=== PATIENT | female | born 1965 | race Two or more races ===

== ENCOUNTER 2021-03-21 14:10 | Emergency (ER) | payer MEDICARE ==
[~2021-03-21] VITALS: Ht 162.6 cm; Wt 102.1 kg
[2021-03-21 14:31] LABS: BASOPHILS # (AUTO) 0.1 (0.0-0.1); BASOPHILS % 0.8 % (0.0-1.0); EOSINOPHILS # (AUTO) 0.2 (0.0-0.4); EOSINOPHILS % 2.2 % (0.0-6.0); HEMATOCRIT 45.3 % (34.2-44.1); HEMOGLOBIN 14.8 g/dL (12.0-16.0); LYMPHOCYTES # (AUTO) 2.1 (1.0-3.2); LYMPHOCYTES % 19.7 % (18.0-39.1); MEAN CORPUSCULAR HEMOGLOBIN 30.7 pg (28-32); MEAN CORPUSCULAR HGB CONC 32.7 g/dL (31-35); MONOCYTES # (AUTO) 0.5 (0.2-0.8); MONOCYTES % 4.7 % (4.4-11.3); NEUTROPHILS # (AUTO) 7.8 (2.1-6.9); NEUTROPHILS % 72.3 % (38.7-80.0); PLATELET COUNT 287 x10e3/uL (140-360); RED BLOOD COUNT 4.82 x10e6/uL (3.6-5.1); RED CELL DISTRIBUTION WIDTH 15.5 % (11.7-14.4)
[2021-03-21 14:44] LABS: INR 0.84; PROTHROMBIN TIME 12.2 seconds (11.9-14.5)
[2021-03-21 14:56] LABS: ALBUMIN 4.2 g/dL (3.5-5.0); ALBUMIN/GLOBULIN RATIO 1.2 (0.8-2.0); ANION GAP 17.5 mmol/L (8-16); CALCIUM 10.1 mg/dL (8.4-10.2); CREATININE, SERUM 1.47 mg/dL (0.57-1.11); POTASSIUM 4.5 mmol/L (3.5-5.1)
[2021-03-21 15:02] LABS: CREATINE KINASE MB 7.1 ng/mL (0-5.0)
== END 2021-03-21 16:37 | disposition home or self-care (01) ==
LOC: ER 14:14
DX: R07.9 Chest pain, unspecified (principal); I10 Essential (primary) hypertension; I25.10 Atherosclerotic heart disease of native coronary artery without angina pectoris; I25.2 Old myocardial infarction; Z95.1 Presence of aortocoronary bypass graft
CPT/HCPCS: 36415; 71045; 80053; 82550; 82553; 83880; 84484; 85025; 85610; 85730; 93005; 99284

== ENCOUNTER 2021-04-14 11:31 | Emergency (ER) | payer OTHER ==
[~2021-04-14] VITALS: Ht 167.6 cm; Wt 120.2 kg
[2021-04-14] MEDS ORDERED: HYDROCODONE/APAP 5MG-325MG TAB PO NR (12:45)
[2021-04-14] MEDS ORDERED: ULTRAM50 MG PO (14:30)
== END 2021-04-14 14:30 | disposition home or self-care (01) ==
LOC: ER 12:28
DX: S66.811A Strain of other specified muscles, fascia and tendons at wrist and hand level, right hand, initial encounter (principal); X50.1XXA Overexertion from prolonged static or awkward postures, initial encounter; Y92.008 Other place in unspecified non-institutional (private) residence as the place of occurrence of the external cause; I10 Essential (primary) hypertension; I25.10 Atherosclerotic heart disease of native coronary artery without angina pectoris; I25.2 Old myocardial infarction; Z95.1 Presence of aortocoronary bypass graft; Z20.822 Contact with and (suspected) exposure to COVID-19; F17.210 Nicotine dependence, cigarettes, uncomplicated
CPT/HCPCS: 29125; 73090; 73110; 73140; 99283; U0002

== ENCOUNTER 2021-07-30 15:10 | Emergency (ER) | payer MEDICARE ==
[~2021-07-30] VITALS: Ht 167.6 cm; Wt 120.2 kg
[~2021-07-30 15:10] MED LIST: ULTRAM50 MG PO
[2021-07-30] MEDS ORDERED: HYDROCODON-ACE1 EAC9 PO (15:31)
[2021-07-30] MEDS ORDERED: LIDOCAINE1 EACH TD (15:31)
== END 2021-07-30 15:36 | disposition home or self-care (01) ==
LOC: ER 15:16
DX: M25.552 Pain in left hip (principal); M54.10 Radiculopathy, site unspecified; I10 Essential (primary) hypertension; I25.10 Atherosclerotic heart disease of native coronary artery without angina pectoris; I25.2 Old myocardial infarction; Z95.1 Presence of aortocoronary bypass graft; F17.210 Nicotine dependence, cigarettes, uncomplicated
CPT/HCPCS: 99282

== ENCOUNTER 2021-10-08 06:39 | Observation (INO) | payer MEDICARE ==
[2021-10-03 11:45] LABS: BASOPHILS # (AUTO) 0.1 (0.0-0.1); BASOPHILS % 0.4 % (0.0-1.0); EOSINOPHILS # (AUTO) 0.3 (0.0-0.4); EOSINOPHILS % 2.2 % (0.0-6.0); HEMATOCRIT 47.9 % (34.2-44.1); HEMOGLOBIN 14.3 g/dL (12.0-16.0); LYMPHOCYTES # (AUTO) 2.8 (1.0-3.2); LYMPHOCYTES % 23.1 % (18.0-39.1); MEAN CORPUSCULAR HEMOGLOBIN 27.8 pg (28-32); MEAN CORPUSCULAR HGB CONC 29.9 g/dL (31-35); MONOCYTES # (AUTO) 0.7 (0.2-0.8); MONOCYTES % 5.3 % (4.4-11.3); NEUTROPHILS # (AUTO) 8.3 (2.1-6.9); NEUTROPHILS % 68.8 % (38.7-80.0); PLATELET COUNT 291 x10e3/uL (140-360); RED BLOOD COUNT 5.15 x10e6/uL (3.6-5.1); RED CELL DISTRIBUTION WIDTH 15.4 % (11.7-14.4)
[2021-10-03 12:01] LABS: ANION GAP 16.5 mmol/L (8-16); CALCIUM 10.2 mg/dL (8.4-10.2); CREATININE, SERUM 0.94 mg/dL (0.57-1.11); POTASSIUM 4.5 mmol/L (3.5-5.1)
[~2021-10-08] VITALS: Ht 167.6 cm; Wt 114.8 kg
[~2021-10-08 06:39] MED LIST changes: +CYCLOBENZAPRINE5 MG PO; +HYDROCODON-ACE1 EAC9 PO; +LASIX40 MG PO; +LIDOCAINE1 EACH TD; +LIPITOR20 MG PO; +LOSARTAN POTASS25 MG PO; +METOPROLOL; +NEURONTIN300 MG PO; +PLAVIX PO; +SYNTHROID50 MCG PO
[2021-10-08] MEDS ORDERED: CELECOXIB 200 MG CAP ONE (07:40)
[2021-10-08] MEDS ORDERED: GABAPENTIN 300 MG CAP ONE (07:41)
[2021-10-08] MEDS ORDERED: DEXAMETHASONE SOD PHOS 10 MG/1 ML VIAL ONE (07:41)
[2021-10-08] MEDS ORDERED: ROPIVACAINE 246.25 MG, EPINEPHRINE HCL 1:1000 1ML 0.5 MG, CLONIDINE HCL 0.08 MG, KETORO... INJ ONE ×5 (08:00)
[2021-10-08] MEDS ORDERED: Vancomycin IV 1,000 MG ONE (08:39)
[2021-10-08] MEDS ORDERED: SODIUM CHLORIDE 0.9% 500ML 500 ML ONE (08:40)
[2021-10-08] MEDS ORDERED: TRANEXAMIC ACID 20 ML ONE (08:40)
[2021-10-08] MEDS ORDERED: DIPHENHYDRAMINE HCL INJ 50 MG/ML VIAL IV PRN (11:00)
[2021-10-08] MEDS ORDERED: ONDANSETRON HCL INJ 2MG/ML 2ML 2 MG/ML VIAL IV PRN (11:00)
[2021-10-08] MEDS ORDERED: DOCUSATE SODIUM 100 MG CAP PO PRN (11:00)
[2021-10-08] MEDS ORDERED: ZOLPIDEM TARTRATE 5 MG TAB PO PRN (11:00)
[2021-10-08] MEDS ORDERED: ACETAMINOPHEN 650 MG SUPP PR PRN (11:00)
[2021-10-08] MEDS ORDERED: HYDROCODONE/APAP 5MG-325MG TAB PO PRN (11:00)
[2021-10-08] MEDS ORDERED: HYDROMORPHONE 1MG/1ML INJ ONE ×2 (11:26→12:52)
[2021-10-08] MEDS ORDERED: PROMETHAZINE HCL (IM) 25 MG/ML VIAL IM ONE (11:26)
[2021-10-08] MEDS ORDERED: EPHEDRINE SULFATE INJ 50 MG/ML VIAL ONE (13:25)
[2021-10-08] MEDS ORDERED: ONDANSETRON HCL INJ 2MG/ML 2ML 2 MG/ML VIAL ONE (13:25)
[2021-10-08] MEDS ORDERED: LIDOCAINE HCL 2% LOCAL INJ 5 ML SDV VIAL INJ ONE (13:25)
[2021-10-08] MEDS ORDERED: POVIDONE IODINE 0.05% 0.05 % ML PO ONE (13:25)
[2021-10-08] MEDS ORDERED: SEVOFLURANE INHAL SOLN 250 ML PEN BTL ONE (13:25)
[2021-10-08] MEDS ORDERED: ACETAMINOPHEN 1000 MG/100 ML IV ONE (13:25)
[2021-10-08] MEDS ORDERED: PROPOFOL IV EMULSION 10 MG/ML 20 ML VIAL ONE (13:25)
[2021-10-08 14:35] VITALS: BP 149/101
[2021-10-08 14:45] VITALS: BP 149/101
[2021-10-08] MEDS: ASPIRIN 325 MG TAB PO SCH (16:16)
[2021-10-08] MEDS: SODIUM CHLORIDE 0.9% 1000ML 1,000 ML IV SCH ×2 (16:18→21:00)
[2021-10-08] MEDS: HYDROCODONE/APAP 7.5MG-325MG 1 EA TAB PO PRN ×2 (16:19→23:59)
[2021-10-08] MEDS ORDERED: CELECOXIB 100 MG CAP PO SCH (17:00)
[2021-10-08] MEDS ORDERED: ACETAMINOPHEN 1000 MG/100 ML IV PRN (18:00)
[2021-10-08 20:00] VITALS: BP 93/68
[2021-10-08] MEDS: KETOROLAC TROMETHAMINE 30 MG/ML VIAL IV PRN (20:26)
[2021-10-08 20:42] VITALS: BP 93/68
[2021-10-09] VITALS: BP 116/55
[2021-10-09] MEDS: SODIUM CHLORIDE 0.9% 1000ML 1,000 ML IV SCH (03:23)
[2021-10-09] MEDS: KETOROLAC TROMETHAMINE 30 MG/ML VIAL IV PRN (05:41)
[2021-10-09] MEDS: HYDROCODONE/APAP 7.5MG-325MG 1 EA TAB PO PRN ×2 (05:46→10:07)
[2021-10-09 05:48] VITALS: BP 127/67
[2021-10-09 06:34] LABS: HEMOGLOBIN 11.3 g/dL (12.0-16.0)
[2021-10-09 08:14] VITALS: BP 108/52
[2021-10-09] MEDS ORDERED: CELECOXIB 200 MG CAP PO SCH (09:00)
[2021-10-09] MEDS: ASPIRIN 325 MG TAB PO SCH (09:00)
[2021-10-09 11:34] VITALS: BP 129/93
[2021-10-09 12:59] VITALS: BP 129/93
== END 2021-10-09 15:45 | disposition home or self-care (01) ==
LOC: OR 06:39 → PACU V 11:18 → MED/SURG 14:30 → MED/SURG2 23:50
PROVIDERS: ADMIT Specialist; ATTEND Specialist
DX: M17.11 Unilateral primary osteoarthritis, right knee (principal); I25.10 Atherosclerotic heart disease of native coronary artery without angina pectoris; Z95.1 Presence of aortocoronary bypass graft; I25.2 Old myocardial infarction; J44.9 Chronic obstructive pulmonary disease, unspecified; Z79.899 Other long term (current) drug therapy; Z01.818 Encounter for other preprocedural examination; I11.0 Hypertensive heart disease with heart failure; I50.9 Heart failure, unspecified; E03.9 Hypothyroidism, unspecified; Z20.822 Contact with and (suspected) exposure to COVID-19; Z88.0 Allergy status to penicillin; Z91.041 Radiographic dye allergy status
CPT/HCPCS: 0223U; 27447; 36415 ×2; 71046; 73560; 80048; 85014; 85018; 85025; 86850; 86900; 86920; 93005; 94799 ×2; 97110; 97116 ×2; 97139 ×2; 97162; 97530 ×2; C1713 ×3; C1776; G0378 ×2; J0131; J0171; J0690 ×2; J1100; J1170; J1885 ×2; J2001; J2405; J2550; J2704; J2795; J3370; J7030 ×2; J7040

== ENCOUNTER 2021-10-12 13:41 | Emergency (ER) | payer MEDICARE ==
[~2021-10-12] VITALS: Ht 167.6 cm; Wt 114.8 kg
[2021-10-12 14:16] VITALS: BP 128/78
== END 2021-10-12 14:15 | disposition home or self-care (01) ==
LOC: ER 13:43
DX: Z48.01 Encounter for change or removal of surgical wound dressing (principal); I10 Essential (primary) hypertension; E78.5 Hyperlipidemia, unspecified; I25.10 Atherosclerotic heart disease of native coronary artery without angina pectoris; K21.9 Gastro-esophageal reflux disease without esophagitis; I50.9 Heart failure, unspecified; E03.9 Hypothyroidism, unspecified; I25.2 Old myocardial infarction; Z95.1 Presence of aortocoronary bypass graft
CPT/HCPCS: 99282

== ENCOUNTER 2022-02-21 10:17 | Observation (INO) | payer MEDICARE ==
[~2022-02-21] VITALS: Ht 162.6 cm; Wt 118.8 kg
[2022-02-21 10:39] LABS: BASOPHILS # (AUTO) 0.1 (0.0-0.1); BASOPHILS % 0.5 % (0.0-1.0); EOSINOPHILS # (AUTO) 0.5 (0.0-0.4); EOSINOPHILS % 4.1 % (0.0-6.0); HEMOGLOBIN 13.6 g/dL (12.0-16.0); LYMPHOCYTES # (AUTO) 1.9 (1.0-3.2); LYMPHOCYTES % 15.6 % (18.0-39.1); MEAN CORPUSCULAR HEMOGLOBIN 26.8 pg (28-32); MEAN CORPUSCULAR HGB CONC 31.6 g/dL (31-35); MEAN CORPUSCULAR VOLUME 84.6 fL (81-99); MONOCYTES # (AUTO) 0.6 (0.2-0.8); MONOCYTES % 5.3 % (4.4-11.3); NEUTROPHILS # (AUTO) 8.8 (2.1-6.9); NEUTROPHILS % 74.1 % (38.7-80.0); PLATELET COUNT 330 x10e3/uL (140-360); RED BLOOD COUNT 5.08 x10e6/uL (3.6-5.1); RED CELL DISTRIBUTION WIDTH 15.6 % (11.7-14.4)
[2022-02-21] MEDS ORDERED: LOPRESSOR25 MG PO (11:44)
[2022-02-21] MEDS ORDERED: CLOPIDOGREL75 MG PO (11:44)
[2022-02-21] MEDS ORDERED: LEVOTHYROXINE112 MCG PO (11:44)
[2022-02-21] MEDS ORDERED: TYLENOL325 MG PO (11:45)
[2022-02-21 12:10] LABS: ALBUMIN 3.4 g/dL (3.5-5.0); ANION GAP 17.9 mmol/L (8-16); CALCIUM 9.8 mg/dL (8.4-10.2); CREATININE, SERUM 0.75 mg/dL (0.57-1.11); POTASSIUM 4.9 mmol/L (3.5-5.1)
[2022-02-21] MEDS ORDERED: ASPIRIN 81 MG CHEW TAB PO ONE (12:30)
[2022-02-21] MEDS ORDERED: ENOXAPARIN SODIUM INJ 100 MG/ML SYR SC STA (13:07)
[2022-02-21 14:00] VITALS: BP 111/70
[2022-02-21 14:20] LABS: CREATINE KINASE 128 IU/L (29-168)
[2022-02-21 14:35] VITALS: BP 111/70
[2022-02-21 15:32] VITALS: BP 102/62
[2022-02-21 20:00] VITALS: BP 105/73
[2022-02-21 20:41] LABS: CREATINE KINASE MB 4.8 ng/mL (0-5.0)
[2022-02-21] MEDS: ENOXAPARIN SODIUM INJ 100 MG/ML SYR SC SCH (21:00)
[2022-02-21] MEDS ORDERED: ATORVASTATIN 40 MG TAB PO SCH (21:00)
[2022-02-22] VITALS: BP 120/52
[2022-02-22 04:00] VITALS: BP 137/57
[2022-02-22] MEDS ORDERED: LEVOTHYROXINE SODIUM 112 MCG TAB PO SCH (06:00)
[2022-02-22 06:41] LABS: BASOPHILS # (AUTO) 0.1 (0.0-0.1); BASOPHILS % 0.8 % (0.0-1.0); EOSINOPHILS # (AUTO) 0.5 (0.0-0.4); EOSINOPHILS % 6.3 % (0.0-6.0); HEMATOCRIT 39.6 % (34.2-44.1); HEMOGLOBIN 12.4 g/dL (12.0-16.0); LYMPHOCYTES # (AUTO) 2.4 (1.0-3.2); LYMPHOCYTES % 30.4 % (18.0-39.1); MEAN CORPUSCULAR HGB CONC 31.3 g/dL (31-35); MEAN CORPUSCULAR VOLUME 86.1 fL (81-99); MONOCYTES # (AUTO) 0.7 (0.2-0.8); MONOCYTES % 8.8 % (4.4-11.3); NEUTROPHILS # (AUTO) 4.2 (2.1-6.9); NEUTROPHILS % 53.3 % (38.7-80.0); PLATELET COUNT 264 x10e3/uL (140-360); RED CELL DISTRIBUTION WIDTH 15.8 % (11.7-14.4)
[2022-02-22 07:32] LABS: ALBUMIN 2.9 g/dL (3.5-5.0); ANION GAP 14.2 mmol/L (8-16); CALCIUM 9.3 mg/dL (8.4-10.2); CHOL/HDL RATIO 7.1 (3.0-3.6); CREATININE, SERUM 0.77 mg/dL (0.57-1.11); POTASSIUM 4.2 mmol/L (3.5-5.1)
[2022-02-22 07:40] LABS: CREATINE KINASE MB 3.4 ng/mL (0-5.0)
[2022-02-22 08:17] VITALS: BP 123/59
[2022-02-22] MEDS: ENOXAPARIN SODIUM INJ 100 MG/ML SYR SC SCH (08:25)
[2022-02-22 09:00] VITALS: BP 123/59
[2022-02-22] MEDS ORDERED: FUROSEMIDE 40 MG TAB PO SCH (09:00)
[2022-02-22] MEDS ORDERED: METOPROLOL SUCCINATE 25 MG TAB XL PO SCH (09:00)
[2022-02-22] MEDS ORDERED: LOSARTAN POTASSIUM 25 MG TAB PO SCH (09:00)
[2022-02-22] MEDS ORDERED: CLOPIDOGREL BISULFATE 75 MG TAB PO SCH (09:00)
[2022-02-22 11:46] VITALS: BP 129/72
[2022-02-22] MEDS ORDERED: METOPROLOL SUCC25 MG PO (14:12)
[2022-02-22] MEDS ORDERED: METOPROLOL SUCC50 MG PO (14:24)
[2022-02-22 15:34] VITALS: BP 118/73
== END 2022-02-22 17:11 | disposition home or self-care (01) ==
LOC: ER 10:33 → ERHOLD 11:28 → MED/SURG2 13:29
PROVIDERS: ADMIT Internal Medicine; ATTEND Internal Medicine
DX: I21.4 Non-ST elevation (NSTEMI) myocardial infarction (principal); I11.0 Hypertensive heart disease with heart failure; I50.32 Chronic diastolic (congestive) heart failure; E03.9 Hypothyroidism, unspecified; I25.10 Atherosclerotic heart disease of native coronary artery without angina pectoris; K21.9 Gastro-esophageal reflux disease without esophagitis; E78.5 Hyperlipidemia, unspecified; F17.200 Nicotine dependence, unspecified, uncomplicated; I25.2 Old myocardial infarction; Z95.1 Presence of aortocoronary bypass graft; Z90.49 Acquired absence of other specified parts of digestive tract; E66.01 Morbid (severe) obesity due to excess calories; Z90.710 Acquired absence of both cervix and uterus; Z98.84 Bariatric surgery status; Z88.0 Allergy status to penicillin; Z91.041 Radiographic dye allergy status; J44.9 Chronic obstructive pulmonary disease, unspecified; Z68.42 Body mass index [BMI] 45.0-49.9, adult; Z82.49 Family history of ischemic heart disease and other diseases of the circulatory system; Z20.822 Contact with and (suspected) exposure to COVID-19
CPT/HCPCS: 0223U; 36415 ×2; 71045; 80053 ×2; 80061; 82550 ×2; 82553 ×2; 83690; 83880; 84443; 84484 ×2; 85025 ×2; 93005; 99284; G0378 ×2; J1650 ×2

== ENCOUNTER 2022-06-15 16:10 | Emergency (ER) | payer MEDICARE ==
[~2022-06-15] VITALS: Ht 162.6 cm; Wt 118.8 kg
[~2022-06-15 16:10] MED LIST changes: +CLOPIDOGREL75 MG PO; +LEVOTHYROXINE112 MCG PO; +LOPRESSOR25 MG PO; +METOPROLOL SUCC25 MG PO; +METOPROLOL SUCC50 MG PO; +TYLENOL325 MG PO
[2022-06-15] MEDS ORDERED: KETOROLAC TROMETHAMINE 30 MG/ML VIAL IM STA (16:52)
[2022-06-15] MEDS ORDERED: NAPROXEN250 MG PO (17:26)
[2022-06-15 17:59] VITALS: BP 102/76
== END 2022-06-15 18:00 | disposition home or self-care (01) ==
LOC: ER 16:18
DX: M79.674 Pain in right toe(s) (principal); W20.8XXA Other cause of strike by thrown, projected or falling object, initial encounter; Y92.89 Other specified places as the place of occurrence of the external cause; I10 Essential (primary) hypertension; J44.9 Chronic obstructive pulmonary disease, unspecified; I50.9 Heart failure, unspecified; E03.9 Hypothyroidism, unspecified; E78.5 Hyperlipidemia, unspecified; K21.9 Gastro-esophageal reflux disease without esophagitis; I25.10 Atherosclerotic heart disease of native coronary artery without angina pectoris; M10.9 Gout, unspecified; I25.2 Old myocardial infarction; Z98.84 Bariatric surgery status
CPT/HCPCS: 73630 ×2; 99284; J1885